=== PATIENT | male | born 1985 ===

== ENCOUNTER 2022-12-23 18:44 | Inpatient (IN) | payer SELFPAY ==
[~2022-12-23] VITALS: Ht 175.3 cm; Wt 73.1 kg
[2022-12-23] MEDS ORDERED: etomidate 2mg/ml inj. IV ONE (19:20)
[2022-12-23] MEDS ORDERED: succinylcholine 20mg/ml inj IV ONE (19:20)
[2022-12-23] MEDS: DOPamine 400mg/D5W 250ml 250 ML IV SCH ×2 (19:29→19:36)
[2022-12-23] MEDS ORDERED: propofol 1000mg/100ml bottle 100 ML IV SCH (19:30)
[2022-12-23] MEDS ORDERED: ringers solution, lactated 1000ml IV soln IV ONE (19:40)
[2022-12-23 19:45] LABS: ABG PCO2 (T) 11.5 mmHg (35.0-48.0); ABG PO2 (T) 31.9 mmHg (75.0-100.0); PATIENT TEMPERATURE 26.9; PEEP 5 cm H2O; RESPIRATORY RATE 18 b/min; TIDAL VOLUME 450 mL; TOTAL HEMOGLOBIN < 4.7 G/dl (14.0-17.9)
[2022-12-23] MEDS ORDERED: sodium bicarbonate (8.4%) 1 mEq/ml syringe IV ONE ×2 (19:55→20:55)
--- NOTE | 2022-12-23 19:56 | NUR ---
Stefany Hilario (mom of girlfriend) lives with the patient: [phone]
[2022-12-23] MEDS ORDERED: epiNEPHrine 0.1mg/ml 10ml syringe ONE (20:00)
[2022-12-23] MEDS ORDERED: sodium bicarbonate (8.4%) 1 mEq/ml syringe ONE (20:00)
[2022-12-23] MEDS ORDERED: DOPamine/D5W 400mg/250ml bag IV ONE (20:00)
[2022-12-23] MEDS ORDERED: etomidate 2mg/ml inj. ONE (20:00)
[2022-12-23 20:13] LABS: CLARITY,URINE CLOUDY (Clear); COLOR,URINE YELLOW (Yellow); GLUCOSE, URINE NEGATIVE (Neg); KETONES,URINE TRACE mg/dl (Neg); LEUKOCYTE ESTERASE ,URINE TRACE (Neg); NITRITES, URINE NEGATIVE (Neg); OCCULT BLOOD,URINE LARGE (Neg); PROTEIN,URINE 100 mg/dl (Neg); UROBILINOGEN,URINE 0.2 E.U/dL (0.2-1.0)
[2022-12-23] MEDS ORDERED: epiNEPHrine 1 mg/ml inj IV STA (20:18)
[2022-12-23 20:19] LABS: UA COLLECTION TYPE FOLEY CATH
[2022-12-23 20:20] LABS: SPERM MANY /HPF (NEGATIVE)
[2022-12-23 20:21] LABS: WBC,URINE TNTC /HPF (0-4)
[2022-12-23 20:22] LABS: RBC,URINE 50-100 /HPF (0-2)
[2022-12-23 20:23] LABS: BACTERIA,URINE FEW /HPF (Neg); SQUAMOUS EPITHELIAL CELL,UR MODERATE /LPF (FEW)
[2022-12-23 20:26] LABS: URINE AMPHETAMINE SCREEN POSITIVE (Neg); URINE BARBITUATE SCREEN NEGATIVE (Neg); URINE BENZODIAZEPINES SCREEN NEGATIVE (Neg); URINE CANNABINOID SCREEN NEGATIVE (Neg); URINE COCAINE SCREEN NEGATIVE (Neg); URINE METHADONE SCREEN NEGATIVE (Neg); URINE OPIATE SCREEN NEGATIVE (Neg); URINE PHENCYCLIDINE SCREEN NEGATIVE (Neg); YEAST FEW /HPF (NEGATIVE)
[2022-12-23] MEDS ORDERED: vancomycin inj 1,000 MG in normal saline 250ml IV soln 250 ML IV STA (20:45)
[2022-12-23] MEDS ORDERED: piperacillin/tazo 4.5gm/100ml 100 ML IV ONE (20:45)
[2022-12-23] MEDS ORDERED: LIDOcaine 2% 10ml TOPICAL JELLY (Urojet) TP ONE (20:50)
[2022-12-23] MEDS ORDERED: acetaminophen 325mg tablet PO PRN (20:50)
--- NOTE | 2022-12-23 20:50 | NUR ---
MD informed regarding change from normal yellow urine to nadir red blood.
[2022-12-23] MEDS ORDERED: haloperidol lactate 5mg/ml inj IM STA (20:52)
[2022-12-23] MEDS ORDERED: SODIUM BICARB 150mEq/D5W 1L 1,000 ML IV ONE (20:55)
[2022-12-23] MEDS ORDERED: vancomycin 1,750 MG in NS 350ml IV soln IV ONE (21:00)
[2022-12-23 21:04] VITALS: BP 94/66
[2022-12-23] MEDS: propofol 1000mg/100ml bottle 100 ML IV SCH (21:37)
[2022-12-23] MEDS: NORepinephrine 8mg/ 250ml NS 250 ML IV SCH (21:38)
--- NOTE | 2022-12-23 21:43 | NUR ---
pt moving head. Received orders for versed/fentanyl as his sbp 105
[2022-12-23] MEDS ORDERED: midazolam 100mg in NS 100ml 100 ML IV PRN (21:45)
[2022-12-23] MEDS ORDERED: FENTANYL-0.9 % NACL/PF 100 ML IV PRN (21:45)
[2022-12-23 23:00] VITALS: BP 100/68
--- NOTE | 2022-12-23 23:14 | NUR ---
Called to transport pt from ER to CT, pt on vent at previously charted settings. Sats unreliable at 74-80% on 100% FIO2, Peep 8. Lead RT Theodora aware. aware. Inline suction of pt several times due to blood filling ET tube. Transported pt to CT on ambu bag ventilation with Peep of 8 and rate 16-20 bpm. Pt tolerated without obvious signs of distress, HR remaoned 58-74. TRanport to ICU and suctioned pt again. PLaced pt on vent at charted settings (previous settings). Confirmed pt stable and reported to RT Donnie who is assuming care. Pt has no orders as of yet, we are awaiting orders from ICU MD per RT Yip. RT Fields aware. Addendum: 12/23/22 at 2319 by Sabine Atwood RT Amended: Links added.
--- NOTE | 2022-12-23 23:35 | NUR ---
Admission -Dr. Calderon on tele camera at bedside. Pt unresponsive. All lab specimens hemolyzed. Orders received.
[2022-12-23 23:51] LABS: ABG BASE EXCESS -10.6 mmol/L (-2.0-2.0); ABG HCO3 18.8 mmol/L (22.0-26.0); ABG OXYGEN SATURATION 49.3 % (94-97); ABG PCO2 (T) 39.4 mmHg (35.0-48.0); ABG PO2 (T) < 28.0 mmHg (75.0-100.0); ALLEN'S TEST POSITIVE; FCOHb 0.3 % (0.0-3.9); FMetHb 0.3 % (0.0-1.5); PATIENT TEMPERATURE 29.8; PEEP 10 cm H2O; RESPIRATORY RATE 28 b/min; TIDAL VOLUME 450 mL; TOTAL HEMOGLOBIN 19.4 G/dl (14.0-17.9)
[2022-12-24] VITALS: BP 94/51
[2022-12-24 00:03] VITALS: BP 81/47
[2022-12-24 01:00] VITALS: BP 88/47
--- NOTE | 2022-12-24 01:30 | NUR ---
Dr. Calderon on tele at bedside. All lab specimens still hemolyzing. Received orders for vent changes.
[2022-12-24 01:33] VITALS: BP 83/48
[2022-12-24] MEDS: NORepinephrine 8mg/ 250ml NS 250 ML IV SCH (01:47)
[2022-12-24] MEDS: propofol 1000mg/100ml bottle 100 ML IV SCH (01:48)
[2022-12-24 02:00] VITALS: BP 84/47
[2022-12-24] MEDS ORDERED: vasopressin inj. 40 UNIT in dextrose 5%-water 50ml 38 ML IV SCH (02:35)
[2022-12-24] MEDS ORDERED: vasopressin inj. 40 UNIT in normal saline 50ml IV soln 38 ML IV SCH (02:35)
--- NOTE | 2022-12-24 02:35 | NUR ---
Called Dr. Calderon regarding Levo is at max rate and pt is hypotensive. Orders received.
[2022-12-24] MEDS ORDERED: atropine 0.1mg/ml 10ml syringe ONE (02:48)
--- NOTE | 2022-12-24 02:48 | NUR ---
Pt heart rate in 30s. Dr. Calderon on tele at bedside. Orders received.
[2022-12-24 03:00] VITALS: BP 79/45
--- NOTE | 2022-12-24 03:40 | NUR ---
Dr. Calderon on bedside tele running code. Pt pronounced at 0318. Attempted to reach pt's girlfriend, no answer to either phone numbers.
[2022-12-24] MEDS ORDERED: famotidine/PF 10 mg/ml inj IV SCH (08:00)
[2022-12-24] MEDS ORDERED: heparin, porcine 5000 units/ml vial SQ SCH (08:00)
== END 2022-12-24 07:00 | DRG 917 ==
LOC: ER 18:45 → ED HOLD 20:51 → CICU 2S 22:05
PROVIDERS: ADMIT Internal Medicine; ATTEND Internal Medicine
PROC: 5A1935Z Respiratory Ventilation, Less than 24 Consecutive Hours (ICD-10-PCS; principal; 2022-12-23)
PROC: 0BH17EZ Insertion of Endotracheal Airway into Trachea, Via Natural or Artificial Opening (ICD-10-PCS; 2022-12-23)
PROC: 5A12012 Performance of Cardiac Output, Single, Manual (ICD-10-PCS; 2022-12-23)
DX: T50.991A Poisoning by other drugs, medicaments and biological substances, accidental (unintentional), initial encounter (principal); G92.9 Unspecified toxic encephalopathy; J80 Acute respiratory distress syndrome; E87.20 Acidosis, unspecified; I46.9 Cardiac arrest, cause unspecified; R68.0 Hypothermia, not associated with low environmental temperature; Y92.89 Other specified places as the place of occurrence of the external cause
CPT/HCPCS: 36415; 36600; 70450; 71045; 72125; 74176; 80305; 81001; 82803; 82948; 84145; 85018; 85025; 87040; 87070; 87088; 92950; 94002; 94799; 99285; A6213; C1751; G0378; J0171; J0330; J0461; J1265; J2543; J2704; J3370; J3490; J7030; J7040; J7120